=== PATIENT | male | born 1995 | race Caucasian/White ===

== ENCOUNTER 2019-12-30 04:34 | Emergency (ER) | payer OTHER ==
[2019-12-30 05:15] LABS: Basophils # (A) 0.1 k/uL (0-0.2); Basophils % (A) 1 %; Eosinophils # (A) 0.1 k/uL (0-0.7); Eosinophils % (A) 1 %; HCT 43.1 % (39.0-53.0); HGB 14.3 gm/dL (13.0-17.5); Lymphocytes # (A) 1.4 k/uL (1.0-4.8); Lymphocytes % (A) 9 %; MCH 29.7 pg (25.0-35.0); MCHC 33.2 g/dL (31.0-37.0); MCV 89.4 fL (80.0-100.0); Mean Platelet Volume 8.2; Monocytes # (A) 0.8 k/uL (0-1.0); Monocytes % (A) 5 %; Neutrophils % (A) 84 %; Platelet Count 239 k/uL (150-450); RBC 4.82 m/uL (4.30-5.90); RDW 13.6 % (11.5-15.5); WBC 14.4 k/uL (3.8-10.6)
--- NOTE | 2019-12-30 05:41 | XR ---
EXAMINATION TYPE: XR chest 2V DATE OF EXAM: 12/30/2019 COMPARISON: NONE HISTORY: Cough TECHNIQUE: 2 views FINDINGS: There is some linear airspace infiltrate in the right middle lobe. The other lung taylor ar e clear. Heart and mediastinum are normal. Bony thorax appears normal. There is no heart failure. IMPRESSION: Right middle lobe pneumonia. Normal heart.
[2019-12-30 05:55] LABS: ALT 20 U/L (4-49); AST 35 U/L (17-59); African American GFR (CKD) >90 (>60 ml/min/1.73 sqM); Albumin 4.5 g/dL (3.5-5.0); Alkaline Phosphatase 83 U/L (38-126); Anion Gap 10 mmol/L; Blood Urea Nitrogen 10 mg/dL (9-20); Calcium 8.9 mg/dL (8.4-10.2); Carbon Dioxide 24 mmol/L (22-30); Chloride 102 mmol/L (98-107); Creatine Kinase 680 U/L (55-170); Glucose 89 mg/dL (74-99); Non-African American GFR(CKD) >90 (>60 ml/min/1.73 sqM); Potassium 4.1 mmol/L (3.5-5.1); Sodium 136 mmol/L (137-145); Total Bilirubin 0.5 mg/dL (0.2-1.3)
[2019-12-30] MEDS ORDERED: PROMETHAZINE INJ 25 MG in SODIUM CHLORIDE 0.9% 50 ML IVPB STA (05:55)
[2019-12-30 06:14] LABS: Troponin I 0.023 ng/mL (0.000-0.034)
[2019-12-30] MEDS ORDERED: AZITHROMYCIN 500 MG TAB PO STA (06:38)
--- NOTE | 2019-12-30 06:40 | ED ---
General Adult HPI <Ty Lawson - Last Filed: 12/30/19 08:14> - General Source: patient, EMS Mode of arrival: EMS Limitations: no limitations - History of Present Illness -: hour(s) Location: right, upper extremity Severity scale (1-10): 7 Quality: burning Consistency: constant Improves with: none Worsens with: none Associated Symptoms: nausea/vomiting Treatments Prior to Arrival: none <Tushar Guy - Last Filed: 12/31/19 08:16> - General Chief complaint: Nausea/Vomiting/Diarrhea Stated complaint: Vomiting Time Seen by Provider: 12/30/19 04:38 - History of Present Illness Initial comments: This patient is a 24-year-old man who presents with a number of complaints. The patient states that he had been using a number of substances last night and then when he woke up his right arm was numb and tingly. He began having some burning type pains extending down the arm, and he also is having some difficulty in raising his right arm. In addition, patient is having nausea and vomiting. He has had a number of episodes of this without seeing any blood or coffee-ground emesis. He does have a little bit of abdominal cramping no linda pain. (Tushar Guy) - Related Data Previous Rx's Medication Instructions Recorded Azithromycin [Zithromax Z-pack] 250 mg PO DIRECTED #6 tab 12/30/19 Allergies Allergy/AdvReac Type Severity Reaction Status Date / Time No Known Allergies Allergy Verified 12/30/19 07:43 Review of Systems ROS Other: All systems not noted in ROS Statement are negative. <Ty Lawson - Last Filed: 12/30/19 08:14> ROS Other: All systems not noted in ROS Statement are negative. Constitutional: Denies: fever, chills Respiratory: Denies: cough, dyspnea Cardiovascular: Denies: chest pain, palpitations, orthopnea, edema Gastrointestinal: Reports: nausea, vomiting. Denies: abdominal pain, diarrhea, constipation, melena, hematochezia Genitourinary: Denies: dysuria, hematuria Musculoskeletal: Reports: as per HPI. Denies: back pain Skin: Denies: rash Neurological: Reports: weakness, numbness. Denies: headache, confusion <Tushar Guy - Last Filed: 12/31/19 08:16> ROS Statement: Those systems with pertinent positive or pertinent negative responses have been documented in the HPI. Past Medical History Past Medical History: No Reported History History of Any Multi-Drug Resistant Organisms: None Reported Past Surgical History: No Surgical Hx Reported Past Psychological History: No Psychological Hx Reported Smoking Status: Smoker, current status unknown Past Alcohol Use History: Heavy Past Drug Use History: None Reported, Cocaine, Heroin, Marijuana, Methamphetamine, Opiates <Tushar Guy - Last Filed: 12/31/19 08:16> General Exam Limitations: no limitations General appearance: alert, in no apparent distress Head exam: Present: atraumatic, normocephalic Eye exam: Present: normal appearance. Absent: scleral icterus, conjunctival injection ENT exam: Present: normal oropharynx Neck exam: Present: normal inspection, full ROM. Absent: tenderness, meningismus Respiratory exam: Present: normal lung sounds bilaterally. Absent: respiratory distress, wheezes, rales, rhonchi, stridor Cardiovascular Exam: Present: regular rate, normal rhythm, normal heart sounds. Absent: systolic murmur, diastolic murmur, rubs, gallop GI/Abdominal exam: Present: soft, normal bowel sounds. Absent: distended, tenderness, guarding, rebound, rigid, mass, pulsatile mass Back exam: Present: normal inspection. Absent: vertebral tenderness Neurological exam: Present: alert, oriented X3, CN II-XII intact, motor sensory deficit (The patient does display weakness in the radial nerve distribution) Skin exam: Present: warm, dry, intact, normal color. Absent: rash <Tushar Guy - Last Filed: 12/31/19 08:16> Course Vital Signs 12/30/19 12/30/19 12/30/19 04:35 06:00 06:30 Temperature 97.4 F L Pulse Rate 70 66 Respiratory 15 Rate Blood Pressure 124/81 124/92 O2 Sat by Pulse 100 97 Oximetry 12/30/19 12/30/19 06:53 08:21 Temperature 98.4 F 98 F Pulse Rate 85 80 Respiratory 18 16 Rate Blood Pressure 133/93 128/79 O2 Sat by Pulse 98 98 Oximetry EKG Findings - EKG Results: EKG: interpreted by ERMD, WNL, sinus rhythm (Rate 66 bpm), normal axis, normal QRS, normal ST/T, no acute changes <Tushar Guy - Last Filed: 12/31/19 08:16> Medical Decision Making - Lab Data Result diagrams: 12/30/19 05:06 12/30/19 04:38 <Ty Lawson - Last Filed: 12/30/19 08:14> - Lab Data Result diagrams: 12/30/19 05:06 12/30/19 04:38 <Tushar Guy - Last Filed: 12/31/19 08:16> - Medical Decision Making Patient care signed out to me by previous shift physician, Dr. Guy. Briefly, patient is a 24-year-old male presents with polysubstance ingestion, vomiting and right upper extremity numbness. Plan was to follow-up with pending venous duplex ultrasound of the right upper extremity looking for right upper extremity deep venous thrombosis. According to Dr. Clark his clinical presentation is suggestive of Saturday night palsy however he does have some mild right upper extremity swelling.Patient evaluated bedside. He states that he has motor and sensory issues of his right upper extremity. Complains of paresthesias to his whole right upper extremity. She does not complain of any weakness of his hand however is unable to abduct his right upper extremity past 45. Furthermore, patient feels like most of his paresthesias is concentrated focally at his med ial deltoid. His pulses are intact and he has good cap refill to his hand and fingers. There is no appreciable swelling. Doesn't have any focal neurologic deficits. Patient's ambulatory without complications and is not ataxic. 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 Ultrasound was unremarkable. Patient will be discharged. He is told to return to emergency department if his symptoms do not improve. Return parameters were discussed. Patient agreeable with discharge. (Ty Lawson) - Lab Data Lab Results 12/30/19 12/30/19 12/30/19 Range/Units 04:38 04:38 05:06 WBC 14.4 H (3.8-10.6) k/uL RBC 4.82 (4.30-5.90) m/uL Hgb 14.3 (13.0-17.5) gm/dL Hct 43.1 (39.0-53.0) % MCV 89.4 (80.0-100.0) fL MCH 29.7 (25.0-35.0) pg MCHC 33.2 (31.0-37.0) g/dL RDW 13.6 (11.5-15.5) % Plt Count 239 (150-450) k/uL Neutrophils % 84 % Lymphocytes % 9 % Monocytes % 5 % Eosinophils % 1 % Basophils % 1 % Neutrophils # 12.0 H (1.3-7.7) k/uL Lymphocytes # 1.4 (1.0-4.8) k/uL Monocytes # 0.8 (0-1.0) k/uL Eosinophils # 0.1 (0-0.7) k/uL Basophils # 0.1 (0-0.2) k/uL Sodium 136 L (137-145) mmol/L Potassium 4.1 (3.5-5.1) mmol/L Chloride 102 (98-107) mmol/L Carbon Dioxide 24 (22-30) mmol/L Anion Gap 10 mmol/L BUN 10 (9-20) mg/dL Creatinine 0.91 (0.66-1.25) mg/dL Est GFR (CKD-EPI)AfAm >90 (>60 ml/min/1.73 sqM) Est GFR (CKD-EPI)NonAf >90 (>60 ml/min/1.73 sqM) Glucose 89 (74-99) mg/dL Calcium 8.9 (8.4-10.2) mg/dL Total Bilirubin 0.5 (0.2-1.3) mg/dL AST 35 (17-59) U/L ALT 20 (4-49) U/L Alkaline Phosphatase 83 (38-126) U/L Creatine Kinase 680 H (55-170) U/L CK-MB (CK-2) 13.0 H (0.0-2.4) ng/mL Troponin I 0.023 (0.000-0.034) ng/mL Total Protein 7.0 (6.3-8.2) g/dL Albumin 4.5 (3.5-5.0) g/dL Disposition Is patient prescribed a controlled substance at d/c from ED?: No <Ty Lawson - Last Filed: 12/30/19 08:14> Is patient prescribed a controlled substance at d/c from ED?: No <Tushar Guy - Last Filed: 12/31/19 08:16> Clinical Impression: Pneumonia, Axillary nerve palsy Disposition: HOME SELF-CARE Condition: Good Instructions (If sedation given, give patient instructions): Pneumonia (ED) Additional Instructions: If you do not have a primary care physician. You're referred to a primary care physician for follow-up of general health and your current symptoms that you were in the emergency department for. Prescriptions: Azithromycin [Zithromax Z-pack] 250 mg PO DIRECTED #6 tab Referrals: Bailey Rodriguez MD [STAFF PHYSICIAN] - 1-2 days
--- NOTE | 2019-12-30 08:09 | US ---
EXAMINATION TYPE: US venous doppler duplex UE RT DATE OF EXAM: 12/30/2019 COMPARISON: NONE CLINICAL HISTORY: 24-year-old male R/O DVT. Drug user. Patient states he is unable to move right arm . No redness or swelling. TECHNIQUE: Grayscale, color doppler, spectral doppler imaging performed of the deep veins of the upp er extremities. SIDE PERFORMED: Right FINDINGS: There is normal flow, compressibility and vascular waveforms. Right Arm: Negative for DVT IMPRESSION: No evidence for DVT within the right upper extremity.
[2019-12-30 08:22] VITALS: BP 128/79; PULSE 80; RESP 16; TEMP 98
== END 2019-12-30 08:21 | disposition home or self-care (01) ==
LOC: EC 04:34
DX: J18.9 Pneumonia, unspecified organism (principal); G58.8 Other specified mononeuropathies; T43.625A Adverse effect of amphetamines, initial encounter; F17.200 Nicotine dependence, unspecified, uncomplicated
CPT/HCPCS: 36415; 93005; 80053; 82550; 82553; 84484; 85025; 71046; 93971; 99285; 96365; 96375; J2550; J0696